=== PATIENT | female | born 1970 | race Caucasian/White ===

== ENCOUNTER 2019-02-27 09:21 | Emergency (ER) | payer OTHER ==
[2019-02-27] MEDS ORDERED: IPRATROPIUM/ALBUTEROL 3 ML NEB INH STA (10:32)
--- NOTE | 2019-02-27 10:36 | ED Physician Documentation ---
PD HPI DYSPNEA - Stated complaint Stated Complaint: COUGH - Chief complaint Chief Complaint: Resp - History obtained from History obtained from: Patient - History of Present Illness Timing - onset: How many days ago (9) Timing - duration: Days (9) Timing - details: Still present Associated symptoms: Cough Similar symptoms before: Diagnosis (Prior history of pneumonia.) - Treatment prior to arrival Treatment prior to arrival: Prednisone and Combivent inhaler for past six days. - Additional information Additional information: The patient is a 49-year-old female who presents with cough and shortness of breath that has been progressing over the past 9 days. It is a nonproductive cough. She was started on Combivent inhaler and prednisone 6 days ago. Her symptoms have become worse rather than better. She denies fever, nausea or vomiting. She reports fatigue, mild headache, and mild sore throat. Past history is significant for pneumonia. She smokes cigarettes. Review of Systems Constitutional: reports: Fatigue. denies: Fever Nose: denies: Congestion Throat: reports: Sore throat (mild) Cardiac: denies: Chest pain / pressure Respiratory: reports: Dyspnea, Cough GI: denies: Abdominal Pain, Nausea, Vomiting : denies: Dysuria Skin: denies: Rash Musculoskeletal: denies: Back pain, Extremity swelling Neurologic: reports: Headache (mild) PD PAST MEDICAL HISTORY - Past Medical History Past Medical History: Yes Respiratory: Asthma, Pneumonia - Present Medications Home Medications: Ambulatory Orders Medication Instructions Recorded Confirmed Azithromycin [Zithromax] 0 mg PO DAILY #6 tablet 02/27/19 - Allergies Allergies/Adverse Reactions: Allergies Allergy/AdvReac Type Severity Reaction Status Date / Time moxifloxacin [From Avelox] Allergy Hives Verified 02/27/19 09:35 - Social History Does the pt smoke?: Yes Smoking Status: Current some day smoker Does the pt drink ETOH?: Yes Does the pt have substance abuse?: No PD ED PE NORMAL - Vitals Vital signs reviewed: Yes (normal) - General General: Alert and oriented X 3, Well developed/nourished - HEENT HEENT: Atraumatic, Pharynx benign - Neck Neck: Supple, no meningeal sign, No adenopathy, No JVD - Cardiac Cardiac: RRR, No murmur - Respiratory Respiratory: Other (Expiratory wheezing and scattered rhonchi bilaterally, with prolonged expiratory phase.) - Abdomen Abdomen: Soft, Non tender - Back Back: No CVA TTP - Derm Derm: No rash - Extremities Extremities: No edema, No calf tenderness / cord - Neuro Neuro: Alert and oriented X 3, No motor deficit, Normal speech Results - Vitals Vitals: Vital Signs - 24 hr 02/27/19 02/27/19 02/27/19 09:31 10:01 10:43 Temperature 36.2 C L Heart Rate 67 56 L Respiratory 14 20 18 Rate Blood Pressure 125/82 H O2 Saturation 97 Oxygen O2 Source Room air - Rads (name of study) 2-view CXR Radiology: Prelim report reviewed, EMP read contemporaneously, See rad report (Bibasilar airspace disease, question atelectasis versus infiltrate. Postsurgical changes right breast. Otherwise negative two-view chest.) PD MEDICAL DECISION MAKING - ED course Complexity details: reviewed results, re-evaluated patient, considered differential, d/w patient ED course: The patient's presentation is most consistent with pneumonia versus asthmatic bronchitis. Chest x-ray reveals bilateral infiltrates. She does not appear septic and pulse oximetry is normal. Treatment in the emergency department included administration of DuoNeb nebulizer and Zithromax 500 mg orally. She is being discharged with a prescription for Zithromax. I discussed with her the diagnosis, outpatient treatment and follow-up, as well as potentially worrisome signs or symptoms that should prompt reevaluation in the emergency department. Departure - Departure Disposition: 01 Home, Self Care Clinical Impression: Pneumonia Qualifiers: Pneumonia type: due to unspecified organism Laterality: bilateral Lung locat ion: lower lobe of lung Qualified Code(s): J18.1 - Lobar pneumonia, unspecified organism Condition: Stable Instructions: ED Pneumonia Adult Follow-Up: NAHOMI LARES DO [Primary Care Provider] - Prescriptions: Azithromycin [Zithromax] 0 mg PO DAILY #6 tablet Comments: Take Zithromax daily as prescribed. Continue using Combivent inhaler as previously prescribed. Follow-up with your primary physician within 1 to 2 weeks. Call to schedule appointment. Return to the emergency department if increasing difficulty breathing, or otherwise worsening symptoms.
--- NOTE | 2019-02-27 10:41 | XRAY Report ---
Reason: SOB Procedure Date: 02/27/2019 Accession Number: [id number] / [id number] Procedure: XR - Chest 2 View X-Ray CPT Code: 99183 FULL RESULT: EXAM: CHEST RADIOGRAPHY EXAM DATE: 02/27/2019 10:15 AM. CLINICAL HISTORY: SOB. COMPARISON: None. TECHNIQUE: 2 views. FINDINGS: Lungs/Pleura: Bibasilar airspace disease, question atelectasis versus infiltrate. No other focal opacities evident. No pleural effusion. No pneumothorax. Normal volumes. Mediastinum: Heart and mediastinal contours are unremarkable. Other: Surgical clips right breast. IMPRESSION: Bibasilar airspace disease, question atelectasis versus infiltrate. Postsurgical changes right breast. Otherwise negative 2 view chest RADIA
[2019-02-27] MEDS ORDERED: AZITHROMYCIN 250 MG TABLET PO STA (11:06)
[2019-02-27 11:46] VITALS: BP 118/64
== END 2019-02-27 11:45 | disposition home or self-care (01) ==
LOC: ED 09:21
DX: J18.1 Lobar pneumonia, unspecified organism (principal); F17.200 Nicotine dependence, unspecified, uncomplicated
CPT/HCPCS: 71046; 94640; 99283; A9270

== ENCOUNTER 2023-04-19 10:28 | Emergency (ER) | payer OTHER ==
[2023-04-19 10:38] VITALS: BP 135/79
--- NOTE | 2023-04-19 10:48 | ED Physician Documentation ---
PD HPI LOWER EXT INJURY - Stated complaint Stated Complaint: RT ANKLE INJ - Chief complaint Chief Complaint: Trauma Ext - History obtained from History obtained from: Patient - History of Present Illness PD HPI LOW EXT INJURY LOCATION: Right, Ankle Type of injury: Twist (inversion) Timing - onset: How many hours ago (1), Today Timing - details: Abrupt onset, Still present Improved by: Rest Worsened by: Moving, Palpating Associated symptoms: Swelling. No: Weakness, Numbness Recently seen: Not recently seen Review of Systems Skin: denies: Abrasion (s), Laceration (s) Neurologic: denies: Focal weakness, Numbness PD PAST MEDICAL HISTORY - Past Medical History Respiratory: Asthma, Pneumonia - Present Medications Home Medications: Ambulatory Orders Medication Instructions Recorded Confirmed Azithromycin [Zithromax] 0 mg PO DAILY #6 tablet 02/27/19 - Allergies Allergies/Adverse Reactions: Allergies Allergy/AdvReac Type Severity Reaction Status Date / Time moxifloxacin [From Avelox] Allergy Hives Verified 04/19/23 10:32 - Social History Does the pt smoke?: Yes Smoking Status: Current some day smoker Does the pt drink ETOH?: Yes Does the pt have substance abuse?: No PD ED PE NORMAL - Vitals Vital signs reviewed: Yes - General General: Alert and oriented X 3, Well developed/nourished - Derm Derm: Normal color, Warm and dry - Extremities Extremities: Other (right ankle with tenderness and some swelling lateral ankle. Not tender medial nor proximal lower leg. ) - Neuro Neuro: No motor deficit, No sensory deficit Results - Vitals Vitals: Vital Signs - 24 hr 04/19/23 10:32 Temperature 36.5 C Heart Rate 70 Respiratory 16 Rate Blood Pressure 135/79 H O2 Saturation 99 Oxygen O2 Source Room air - Rads (name of study) right ankle Relevant Findings:: Prelim report reviewed, EMP independent interpretation of test (no acute fractures. ), See rad report PD Medical Decision Making - ED course Complexity details: reviewed results (no fracture. Will give aircast. ), considered differential (sprain versus fracture- to get xray. ), d/w patient Departure - Departure Disposition: 01 Home, Self Care Clinical Impression: Sprain of lateral ligament of ankle joint Condition: Stable Record reviewed to determine appropriate education?: Yes Instructions: ED Sprain Ankle W X Ray Follow-Up: LUDA,NAHOMI A, DO [Primary Care Provider] - Comments: No fractures on x-ray. The radiology report corroborates. You still have pain and injury from the sprain of the ligaments. This can be several days to a week for mild sprains or 3 to 4 weeks for worse sprains. Use the ankle brace when up and around or some support of the ankle (taping or such as it is improving). Tylenol ibuprofen or Aleve if needed for pains. Ice elevate and rest it often today to reduce potential swelling. Activity as tolerated. Recheck if not improving well over the next 1 or 2 weeks. Discharge Date/Time: 04/19/23 11:23
--- NOTE | 2023-04-19 11:02 | XRAY Report ---
PROCEDURE: Ankle 3 View RT INDICATIONS: Trauma TECHNIQUE: 3 views of the ankle were acquired. COMPARISON: None. FINDINGS: Bones: No fractures or dislocations. Ankle mortise is normally aligned. No suspicious bony lesions . Mild posttraumatic degenerative change. Soft tissues: No tibiotalar joint effusion. Achilles tendon appears normal. IMPRESSION: Mild posttraumatic degenerative change. No acute bony abnormality. If there remains a high clinical c oncern for fracture, consider cross-sectional imaging now. If pain persists, consider repeat x-ray in 10-14 days or cross-sectional imaging. Reviewed by: Kelechi Ureña MD on 04/19/2023 11:01 AM PDT Approved by: Kelechi Ureña MD on 04/19/2023 11:01 AM PDT Station ID: [id number]
== END 2023-04-19 11:23 | disposition home or self-care (01) ==
LOC: ED 10:28
DX: S93.401A Sprain of unspecified ligament of right ankle, initial encounter (principal); X50.1XXA Overexertion from prolonged static or awkward postures, initial encounter; F17.200 Nicotine dependence, unspecified, uncomplicated
CPT/HCPCS: 99283